=== PATIENT | female | born 1945 | race Caucasian/White ===

== ENCOUNTER → 2024-05-16 13:14 | Outpatient (REF) | payer MEDICARE, SELFPAY | LOC: WDC 13:14 | PROVIDERS: ATTENDING PHYSICIAN Family Medicine | DX: Z12.31 Encounter for screening mammogram for malignant neoplasm of breast (principal) | CPT/HCPCS: 77063; 77067 ==

== ENCOUNTER → 2024-06-29 07:28 | Outpatient (REF) | payer MEDICARE, SELFPAY ==
[2024-06-29] MEDS: LEXISCAN 0.4 MG IV (09:23)
[2024-06-29] MEDS: AMINOPHYLLINE 75 MG IV (09:49)
== END ==
LOC: RCS 07:28
PROVIDERS: ATTENDING PHYSICIAN Internal Medicine Cardiovascular Disease; FAMILY PHYSICIAN Family Medicine
DX: I51.81 Takotsubo syndrome (principal); I48.91 Unspecified atrial fibrillation; R06.02 Shortness of breath
CPT/HCPCS: 78452; 93017; A9500; J2785

== ENCOUNTER 2024-07-04 14:07 | Emergency (ER) | payer MEDICARE, SELFPAY ==
[2024-07-04 14:12] VITALS: BP 136/78
--- NOTE | 2024-07-04 15:58 | ED.PDOC.TRB ---
ED Provider Triage
-
Patient seen by provider in Triage?: Seen in Triage
A medical screening examination has been initiated by a qualified medical provider. Based on the assessment performed at this time, it has been determined that an emergent medical condition may exist and the patient has been informed that further
medical evaluation and possible additional diagnostic testing may be needed.
This is a medical evaluation conducted in person to initiate diagnostic evaluation and provide initial therapeutics. Please see further documentation by the treating clinician.
GENERAL: Alert , in no apparent distress
EYE: No visual abnormalities
NECK: No visual changes
ENT: No visual abnormalities
CARDIAC:
LUNGS: Breathing normally
ABDOMEN:
NEUROLOGICAL: Alert and oriented, no visual focal neuro deficits
SKIN: Warm and dry, skin intact.
MUSCULOSKELETAL: No edema, well perfused. Moving normally
PSYCH: Normal and appropriate interaction.
HPI/RA Plan: Patient presented to the emergency department after feeling lightheaded falling to the ground to close that she may have hit her forehead she had a CT scan initially which did not show any emergent findings. Denies any additional
injuries never fully blacked out but has felt very lightheaded and has felt very fatigued since starting metoprolol a few weeks ago. Does have history of A-fib and scheduled for an echo and potential cardioversion in the future. Otherwise here she
is in no obvious distress during my assessment plan to get labs and EKG for further assessment due to ongoing lightheadedness and weakness.
[2024-07-04 16:44] LABS: % Basophils 0.8 % (0-2); % Eosinophils 0.8 % (0-6); % Immature Granulocytes 0.9 % (0-0.5); % Monocytes 8.3 % (1.7-9.3); % Neutrophils 79.2 % (42.2-75.2); Absolute Basophils 0.1 10^3/uL (0-0.2); Absolute Eosinophils 0.1 10^3/uL (0-0.7); Absolute Immature Granulocytes 0.1 10^3/uL (0-0.05); Absolute Lymphocytes 1.1 10^3/uL (1.2-3.4); Absolute Monocytes 0.9 10^3/uL (0.1-0.6); Absolute Neutrophils 8.4 10^3/uL (1.4-6.5); Hematocrit 31.3 % (37.0-47.0); Hemoglobin 10.4 g/dL (12.0-16.0); Mean Corp Hgb Conc. 33.2 g/dL (33.0-37.0); Mean Corpuscular Hgb 29.2 pg (27.0-31.0); Mean Corpuscular Volume 87.9 fL (81.0-99.0); Mean Platelet Volume 10.6 fL (7.4-10.4); Nucleated Red Blood Cells % 0 %; Platelet Count 280 10^3/uL (130-400); Red Blood Cell Count 3.56 10^6/uL (4.20-5.40); Red Cell Dist. Width 15.8 % (11.5-14.5); White Blood Cell Count 10.7 10^3/uL (4.8-10.8)
[2024-07-04 17:04] LABS: ALT (SGPT) 37 U/L (0-35); AST (SGOT) 44 U/L (14-36); Albumin 3.8 g/dl (3.5-5.0); Alkaline Phosphatase 110 U/L (38-126); Blood Urea Nitrogen 18 mg/dl (7-17); Calcium 9.4 mg/dl (8.4-10.2); Carbon Dioxide 25 mmol/L (22-30); Chloride 103 mmol/L (98-107); Glucose 109 mg/dl (70-99); Potassium 4.3 mmol/L (3.5-5.1); Sodium 136 mmol/L (135-145); Total Bilirubin 0.8 mg/dl (0.2-1.3); Total Protein 6.6 g/dl (6.3-8.2); eGFR 51.43
[2024-07-04 17:10] LABS: Urine Albumin Trace (Neg - Trace); Urine Bilirubin 1+ (Negative); Urine Character Clear (Clear); Urine Color Amber; Urine Glucose Negative (Negative); Urine Ketone Trace (Negative); Urine Leukocyte Trace (Negative); Urine Nitrite Negative (Negative); Urine Occult Blood Negative (Negative); Urine Specific Gravity 1.025 (<1.030); Urine Urobilinogen 1+ (Neg - 1+)
[2024-07-04 17:41] VITALS: BP 108/47
[2024-07-04 18:38] LABS: Urine Hyaline Cast 0-2 /LPF (0-2); Urine Mucus Moderate; Urine Red Blood Cell 0-2 /HPF (0-2)
--- NOTE | 2024-07-04 18:38 | ED.GENMED ---
History of Present Illness
General
Chief Complaint: Fall
Source: patient
Exam Limitations: none
Time Seen by Provider: 07/04/24 18:36
History of Present Illness
History of Present Illness:
This is a 78 year old female that comes in with c/o fall in her kitchen. States that she was just walking in her kitchen today and she felt lightheaded and she could just feel herself falling. States that she recently had a tragedy in her family and
was has not been feeling good. States that she had to wear Holter Monitor and they found that she was in atrial fib. Patient states that she was started on Metoprolol and they increased her Eliquis to 5mg BID. States that she is also taking
Lisinopril in the morning and she takes the Metoprolol at night. States that she did not have any LOC today but did bump her head. States that the room was spinning. Denies any fever, chills, chest pain, SOB, ab pain, nausea, vomiting, diarrhea,
headache, urinary burning.
Past History
Past History
ED Past Medical History: Arrthythmia (Atrial fib, ) and Other (PNA, Constipation)
ED Past Surgical History: Gynecological (D&C), Orthopedic (Right knee surgery, ) and Tonsilectomy
Social History
Tobacco: Non-smoker
Alcohol: None
Personal:
Living: with family
Review of Systems
Review of Systems
All Other Systems: ROS reviewed and negative except as documented in HPI and ROS
Constitutional: Reports no symptoms; Denies fever or chills
EENT: Reports no symptoms
Respiratory: Reports no symptoms; Denies cough or trouble breathing
Cardiac: Reports no symptoms; Denies chest pain
ABD/GI: Reports no symptoms; Denies abdominal pain, nausea, vomiting or diarrhea
: Reports no symptoms; Denies dysuria, frequency or urgency
Musculoskeletal: Reports no symptoms
Skin: Reports no symptoms
Neurological: Reports dizzy (Room was spinning); Denies headache
Psychiatric: Reports no symptoms
Phy Exam
General Physical Exam
General Presentation: no apparent distress
General age: appears stated age
General Skin: warm and dry
General Habitus: elderly
General Mental: alert
General Hydration: appears well hydrated
ENT Exam
ENT Exam: TM's normal, pharynx normal and neck supple
Eye Exam
Eye Exam: EOMI
Cardiovascular Exam
Cardiovascular Exam: regular rate/rhythm and normal peripheral pulses
Pulmonary Exam
Pulmonary Exam: lungs clear, no respiratory distress, no rales, chest non tender, no crackles, no rhonchi, no wheezing and no cough
Gastrointestinal Exam
Gastrointestinal Exam: normal bowel sounds, non tender, soft, no organomegaly, no pulsatile mass and non distended
Musculoskeletal Exam
Musculoskeletal Exam: full ROM and edema (Very slight ankle edema )
Skin Exam
Skin Exam: normal color, warm/dry, no rash and no petechia
Psychiatric Exam
Psychiatric Exam: normal mood/affect
Course
Orders/Labs/Results
Orders:
Orders
07/04/24 14:14
CT Head W/o Iv Contrast Urgent
Comment: pt is on bld thinner for afib
Reason For Exam: dizzy and fell hit head
07/04/24 16:02
Electrocardiogram (*1) Stat
Reason for Study: Abdominal Pain
EKG- Treatment ONCE
07/04/24 16:27
Complete Blood Count/With Diff Urgent
Comprehensive Metabolic Panel Urgent
Urinalysis Reflex To Culture Urgent
Date Specimen was Collected: 07/04/24
Time Specimen was Collected: 16:19
Urine Microscopic Reflex Cult Urgent
07/04/24 19:04
Orthostatic VS- Treatment ONCE
0.9% Sodium Chloride 500 ml [Nss] 500 ml IV BOLUS
Abnormal Lab Results
07/04/24
16:27
RBC 3.56 L 10^6/uL
(4.20-5.40)
Hgb 10.4 L g/dL
(12.0-16.0)
Hct 31.3 L %
(37.0-47.0)
RDW 15.8 H %
(11.5-14.5)
MPV 10.6 H fL
(7.4-10.4)
Abs Immat Gran (auto) 0.1 H 10^3/uL
(0-0.05)
Absolute Neuts (auto) 8.4 H 10^3/uL
(1.4-6.5)
Absolute Lymphs (auto) 1.1 L 10^3/uL
(1.2-3.4)
Absolute Monos (auto) 0.9 H 10^3/uL
(0.1-0.6)
Immature Gran % 0.9 H %
(0-0.5)
Neutrophils % 79.2 H %
(42.2-75.2)
Lymphocytes % 10.0 L %
(20.5-51.1)
BUN 18 H mg/dl
(7-17)
Creatinine 1.1 H mg/dL
(0.6-1.0)
Glucose 109 H mg/dl
(70-99)
AST 44 H U/L
(14-36)
ALT 37 H U/L
(0-35)
Urine Ketones Trace A
(Negative)
Urine Bilirubin 1+ A
(Negative)
Leukocyte Esterase Rfl Trace A
(Negative)
Urine Bacteria (Reflex) Few A
(Negative)
07/04/24 16:27
07/04/24 16:27
H/H low ( prior labs to compare are from 2021), Slight Dehydration. Glucose nonfasting. AST. ALT slightly elevated. Urine negative for infection.
Vital Signs
Initial and Last Documented VS:
Initial Vital Signs
Temp Pulse Resp BP Pulse Ox
97.8 F 63 16 136/78 98
07/04/24 14:12 07/04/24 14:12 07/04/24 14:12 07/04/24 14:12 07/04/24 14:12
Last Documented Vital Signs
Temp Pulse Resp BP Pulse Ox
97.6 F 53 18 108/47 100
07/04/24 17:41 07/04/24 17:41 07/04/24 17:41 07/04/24 17:41 07/04/24 17:41
MDM/Problems Addressed
Differential Diagnosis Includes:
Orthostatic hypotension, Bradycardia
MDM/Problems Addressed:
This is a 78 year old female that comes in with c/o fall. States that she was in her kitchen and could fell herself falling. States that the room was spinning.
Will check labs, CT head. Give IV fluids, Orthostatic vitals. Explained to patient that she needs to follow up with the [facility] as she may need to decrease her medication as her BP is very low and her heart rate is low. Patient has an
appointment for an ECHO on Thursday. Explained to patient that she will need to call the [facility] office and explain to them what happened today.
Will give IV fluids and then discharge.
Chronic conditions affecting care: Arrhythmia (Atrial fib)
Acute Exacerbation and/or Progression of Chronic Illness:
NA
*Radiology
Radiology exam reviewed: radiology read reviewed (CT head-No acute intracranial abnormality noted. )
*Pulse Oximetry
Patient hypoxic: no
*EKG
Interpreted by ED Provider?: Yes
Heart Rate: 55
Rate: bradycardiac
Rhythm: sinus
Assumption: normal axis
Interval: normal interval
QRS Pattern: normal QRS
Ischemia: T-wave inversion (III, aVR, V1, V2, Checked by Dr. Cisneros)
*Critical Care Note
Total Time (30-74mins, 75-104mins- exclusive of procedures): Not Applicable
ED Attending Note
-
Portions of this chart may have been created with voice recognition software.� Occasional wrong word or��sound alike� substitutions may have occurred due to the inherent limitations of voice recognition software.
Discharge Plan
Departure
Patient Disposition: Home (Routine Discharge)
Date of Disposition: 07/04/24
Time of Disposition: 19:43
Patient with high blood pressure during this ER visit?: No
Condition: Good
Covid-19: Not Applicable
Discharge Problem:
Light-headedness, Accidental fall
Instructions: Preventing falls in adults, Dizziness, Nonvertigo, (DC)
Prescriptions:
No Action
multivitamin [Multi-Day] 1 EACH tablet
1 ea PO DAILY
cod liver oil 120 ML oil
120 ml PO DAILY
Calcium
Vitamin B Complex-50 Tab
Vitamin D Tab
400 units PO DAILY
atorvastatin 20 MG tablet
20 mg PO QPM Qty: 30 11RF
aspirin 81 MG tablet,delayed release (DR/EC)
81 mg PO DAILY 0RF
carvedilol 3.125 MG tablet
3.125 mg PO BID Qty: 60 11RF
lisinopril 2.5 MG tablet
2.5 mg PO DAILY Qty: 30 11RF
Eliquis DVT-PE Treat 30D Start 5 mg (74 tabs) tablets,dose pack
5 mg PO ONCE Qty: 74 0RF
Rx Instructions:
10 mg twice a day for 7 days followed by 5 mg twice a day
Referrals:
Mamta Mckeon, DO [Active] - Follow up in 2-3 days
Kristine Leonard, DO [Family Provider] -
Activity Restrictions/Additional Instructions:
As discussed, your blood work shows that you are very slightly dehydrated. Your Urine is negative for infection and your CT of the head is normal. Your Heart rate is very slow and your BP is low. Please follow up with the [facility] as she may
wish to decrease your medication. Please increase your water intake to 8-8oz glasses daily. IF YOU HAVE ANY FURTHER DIZZINESS, OR YOU HAVE ANY OTHER CONCERNS PLEASE RETURN TO THE EMERGENCY ROOM.
Interventions
Interventions:
ED-Musculoskeletal Assessment Last Done: 07/04/24 18:46
ED- Neurological Assessment Last Done: 07/04/24 18:46
ED-Skin Assessment Last Done: 07/04/24 18:46
Discharge Date and Time
Print Language: FRISIAN
[2024-07-04 18:39] LABS: Urine Bacteria Few (Negative)
[2024-07-04 18:58] VITALS: BP 125/87; BP 127/50; BP 137/54; PULSE 56; PULSE 60; PULSE 64
[2024-07-04] MEDS: NSS 500 IV (19:10)
[2024-07-04 19:40] VITALS: BP 124/58
== END 2024-07-04 19:57 | disposition home or self-care (01) ==
LOC: EMR 14:07
PROVIDERS: Physician Assistant; EMERGENCY PHYSICIAN Student in an Organized Health Care Education/Training Program; FAMILY PHYSICIAN Family Medicine
DX: R42 Dizziness and giddiness (principal); W18.39XA Other fall on same level, initial encounter; Y92.000 Kitchen of unspecified non-institutional (private) residence as the place of occurrence of the external cause; I48.91 Unspecified atrial fibrillation; Z79.01 Long term (current) use of anticoagulants; Z79.899 Other long term (current) drug therapy; Z87.01 Personal history of pneumonia (recurrent)
CPT/HCPCS: 99284; 70450; 80053; 81003; 81015; 85025; 93005

== ENCOUNTER → 2024-07-06 08:05 | Outpatient (REF) | payer MEDICARE, SELFPAY | LOC: RCS 08:05 | PROVIDERS: ATTENDING PHYSICIAN Internal Medicine Cardiovascular Disease; FAMILY PHYSICIAN Family Medicine | DX: I51.81 Takotsubo syndrome (principal); R06.02 Shortness of breath | CPT/HCPCS: 93306 ==

== ENCOUNTER → 2024-08-17 15:41 | Outpatient (REF) | payer MEDICARE, SELFPAY | LOC: HWRCS 15:41 | PROVIDERS: ATTENDING PHYSICIAN Internal Medicine Cardiovascular Disease; FAMILY PHYSICIAN Family Medicine | DX: I48.91 Unspecified atrial fibrillation (principal); I31.39 Other pericardial effusion (noninflammatory) | CPT/HCPCS: 93308 ==

== ENCOUNTER 2024-11-16 05:55 | Day surgery (SDC) | payer MEDICARE, SELFPAY ==
[2024-11-01 12:30] VITALS: BMI 22.8
[2024-11-01 13:05] LABS: % Basophils 0.9 % (0-2); % Eosinophils 1.7 % (0-6); % Immature Granulocytes 0.6 % (0-0.5); % Lymphocytes 20.2 % (20.5-51.1); % Monocytes 9.9 % (1.7-9.3); % Neutrophils 66.7 % (42.2-75.2); Absolute Basophils 0.1 10^3/uL (0-0.2); Absolute Eosinophils 0.1 10^3/uL (0-0.7); Absolute Lymphocytes 1.3 10^3/uL (1.2-3.4); Absolute Monocytes 0.6 10^3/uL (0.1-0.6); Absolute Neutrophils 4.2 10^3/uL (1.4-6.5); Hematocrit 37.2 % (37.0-47.0); Mean Corp Hgb Conc. 32.3 g/dL (33.0-37.0); Mean Corpuscular Hgb 27.5 pg (27.0-31.0); Mean Corpuscular Volume 85.3 fL (81.0-99.0); Mean Platelet Volume 9.7 fL (7.4-10.4); Nucleated Red Blood Cells % 0 %; Platelet Count 304 10^3/uL (130-400); Red Blood Cell Count 4.36 10^6/uL (4.20-5.40); Red Cell Dist. Width 13.8 % (11.5-14.5); White Blood Cell Count 6.4 10^3/uL (4.8-10.8)
[2024-11-01 13:25] LABS: ALT (SGPT) 13 U/L (0-35); AST (SGOT) 24 U/L (14-36); Albumin 4.5 g/dl (3.5-5.0); Alkaline Phosphatase 105 U/L (38-126); Blood Urea Nitrogen 22 mg/dl (7-17); Calcium 9.9 mg/dl (8.4-10.2); Carbon Dioxide 29 mmol/L (22-30); Chloride 102 mmol/L (98-107); Estimated Creatinine Clearance 33 ml/min; Glucose 99 mg/dl (70-99); Magnesium 2.2 mg/dl (1.6-2.3); PT 15.5 Sec (11.4-14.6); Potassium 4.9 mmol/L (3.5-5.1); Sodium 141 mmol/L (135-145); Total Bilirubin 0.4 mg/dl (0.2-1.3); Total Protein 7.5 g/dl (6.3-8.2); eGFR 51.11
--- NOTE | 2024-11-01 13:54 | HPS.HSE ---
Family Physician
-
Family Physician: Sruthi Pham
Chief Complaint
-
Paroxysmal atrial fibrillation.
History of Present Illness
The patient is a 79 year old female presenting today for paroxysmal atrial fibrillation. The patient reports a history of mild dyspnea with exertion, palpitations, and decreased exercise tolerance associated with this diagnosis. She is on
no current pharmacological therapy due to tachycardia-bradycardia syndrome. She has been compliant with Eliquis for oral anticoagulation. She notes that her atrial fibrillation symptoms greatly interfere with her activities of daily living and
overall impact her quality of life. She is interested in pursuing pulmonary vein isolation for further arrhythmia management. She denies any current complaints today such as chest pain, shortness of breath at rest, nausea, vomiting, diarrhea,
lightheadedness, dizziness, cough, sore throat, or fever.
Medical History
Past Medical History
Past Medical History: Reports Other
Additional Past Medical History:
1. Paroxysmal atrial fibrillation, oral anticoagulation with Eliquis.
2. Hypertension.
3. Dyslipidemia.
4. Tachycardia-bradycardia syndrome.
5. Takotsubo cardiomyopathy, recovered ejection fraction.
6. Mild tricuspid regurgitation.
7. Mild mitral regurgitation.
8. Mitral valve prolapse.
9. Trivial pericardial effusion on last echocardiogram.
10. Right common femoral, popliteal, peroneal, and posterior tibial DVT, 07/2022, on chronic Eliquis.
11. Chronic kidney disease stage 3.
12. Chronic constipation.
13. Diverticulosis.
14. Scoliosis.
15. Arthritis.
16. Urinary incontinence.
17. Monoclonal gammopathy.
18. Osteoporosis.
Past Surgical History: Reports Other
Additional Past Surgical History:
1. Cardiac catheterization.
2. Right knee meniscus repair.
3. Tonsillectomy.
4. D&C.
5. Right cataract extraction.
6. Colonoscopy x2.
Social History
Tobacco: Non-smoker
Alcohol: None
Living: Other (She lives with her daughter in a 2 story home. )
Family History
Family History: Not pertinent
Allergies / Home Medications
Allergy/Medication List:
Home medications:
1. Tylenol 650 mg p.o. every 4 hours as needed.
2. Apixaban 5 mg p.o. twice a day.
3. Calcium 1 tablet p.o. daily.
4. Cholecalciferol 25 mcg p.o. daily.
5. Lisinopril 2.5 mg p.o. daily.
Allergies: Fentanyl.
Adverse reactions: Adhesive (itching).
Review of Systems
-
A 12 point ROS was completed and negative except as noted: Yes
Physical Exam
Vital Signs
Blood pressure 122/86. Heart rate 69. Respirations 18. Pulse ox 99% on room air.
Height 5 feet, 2 inches. Weight 56.6 kg. BMI 22.8.
Physical Exam
General: Well Developed, Well Nourished and No Apparent Distress
HEENT: NormoCephalic, Moist mucous membranes and Atraumatic
Respiratory: Clear
Cardiac: Irregular Rhythm
GI: Soft, Non Tender and Non Distended
Musculoskeletal: No Edema and Normal Gait & Station
Skin: Warm and Dry
Neuro: AO x 3 and Nonfocal/grossly intact
Laboratory Results
-
11/01/24 12:39
11/01/24 12:39
Laboratory Results
PT 15.5 Sec (11.4-14.6) H 11/01/24 12:39
INR 1.20 11/01/24 12:39
Total Bilirubin 0.4 mg/dl (0.2-1.3) 11/01/24 12:39
AST 24 U/L (14-36) 11/01/24 12:39
ALT 13 U/L (0-35) 11/01/24 12:39
Alkaline Phosphatase 105 U/L (38-126) 11/01/24 12:39
Type and screen O positive.
EKG 11/01/2024: Atrial fibrillation with rapid ventricular response.
Chest CT 11/01/2024: Short segment common vestibule for the left superior and inferior pulmonary veins, fairly commonly seen and considered normal variant. No evidence for left atrial thrombus.
Echocardiogram 08/17/2024: Normal left ventricular size, wall thickness and systolic function. No regional wall motion abnormalities are seen. LV ejection fraction is 55-60% by volumetric assessment. Mitral valve opens normally. Thickened mitral
valve leaflets with mild to moderate mitral regurgitation. Tricuspid valve opens normally with mild to moderate tricuspid regurgitation. Estimated pulmonary artery pressure of 41 mmHg assuming a right atrial pressure of 3 mmHg. Trivial pericardial
effusion. Rapid atrial fibrillation throughout study. Since echo of July 06, 2024 which was reviewed, there is no significant change. Heart rate is faster in atrial fibrillation.
Nuclear stress test 06/29/2024: Lexiscan nuclear stress test reveals no significant ischemia or scar with normal perfusion. Normal LV size and function. Ejection fraction is 66%. Overall intermediate risk stress test based on Lexiscan protocol.
Impression/Plan
-
IMPRESSION/PLAN:
1. Paroxysmal atrial fibrillation: The patient is in need of pulmonary vein isolation with Dr. Kyrie Montalvo on 11/16/2024. The benefits and risks of the procedure have been explained to the patient. The patient understands these risks and wishes to
proceed. She will not be required to undergo a pre-procedural transesophageal echocardiogram as she has been compliant with her home oral anticoagulation. She is aware to continue her Eliquis uninterrupted prior to her procedure. She is aware to
take no medications the morning of her procedure.
[2024-11-16] VITALS (16 sets, daily range): BP systolic 116–169; BP diastolic 63–116; BMI 22.8
[2024-11-16] MEDS: NSS 500 IV (06:51)
[2024-11-16 09:00] LABS: ACT-LR - POC 287 Seconds (116-155)
[2024-11-16 09:17] LABS: ACT-LR - POC 284 Seconds (116-155)
[2024-11-16 09:52] LABS: ACT-LR - POC 384 Seconds (116-155)
[2024-11-16 10:17] LABS: ACT-LR - POC 136 Seconds (116-155)
[2024-11-16] MEDS: TYLENOL 650 MG PO (11:05)
--- NOTE | 2024-11-16 11:37 | ITS.CL.ABL ---
Addendum entered and electronically signed by Kyrie Montalvo DO 11/16/24 15:15:
Addendum:
'...with bupivacaine. The right [and left femoral vein were]femoral vein was accessed for catheter placement...' should read, '...with bupivacaine. The right femoral vein was accessed for catheter placement...'
Original Note:
Paper Finisher - Ablation
Ablation
Procedure Report:
Primary Decision Support Analyst: Mamta Mckeon DO
Procedure Date: 11/16/2024
Patient History:
Patient is a very pleasant 79-year-old female with a past medical history significant for persistent atrial fibrillation, tachybradycardia syndrome, nonischemic cardiomyopathy with recovered EF, trace pericardial effusion, hypertension,
dyslipidemia, history of DVT/VTE with symptomatic persistent atrial fibrillation.
See H&P for complete details.
Indication:
Symptomatic persistent atrial fibrillation
Inability to tolerate rate controlling agents due to tachybradycardia syndrome
Arrhythmia Specific History:
Prior Medical Therapies for Rate and Rhythm Control:
[ ] Beta-bhanu
[ ] Calcium channel-bhanu
[ ] Amiodarone
[ ] Dronederone
[ ] Sotalol
[ ] Flecainide
[ ] Dofetilide
X Options limited by bradycardia
[ ] Options limited by comorbid renal disease
Prior Procedural Therapies for AF/AFL:
[ ] Cardioversion
[ ] Pulmonary Vein Isolation
[ ] Posterior Wall Isolation
[ ] Additional lines (Specify)
[ ] Surgical Deutsch-MAZE or PVI (Specify)
Procedure Performed:
X AF ablation procedure (53921) -- includes LA/CS pacing, trans-septal, 3D mapping, + ICE
[ ] +IV drug (26353)
[ ] +Other Arrhythmia (29046)
X +Other AF Line/ablation (24668) -- posterior wall isolation (roof, floor, posterior wall)
Risks and expected recovery has been explained in detail. Alternative options have been explored, and in a shared-decision making fashion we have decided that this was the most appropriate procedure.
Method
NPO status confirmed. Grounding pad applied. Defibrillator pads applied. Continuous surface ECG, pulse oximetry, and blood pressure were monitored. Procedure was performed under general anesthesia, with anesthesia services.
Both groins were clipped, prepped with Chloraprep, and draped in sterile fashion. Time out was called. Local anesthesia administered with bupivacaine. The right [and left femoral vein were]femoral vein was accessed for catheter placement, using
ultrasound guidance, micro-puncture needle/wire, and modified seldinger technique. 3 sheaths were placed. The following catheters were used:
[ ] Tacticath SE (D/F Curve) ablation catheter
X Viewflex 9Fr ICE catheter
X Inquiry decapolar 6Fr diagnostic catheter
[ ] CRD Hex 6Fr
[ ] Arctic Front Advance Cryoballoon ([ ]28mm[ ]23mm)
[ ] Achieve Advance mapping catheter ([ ]15mm[ ]20mm)
X FlexCath Contour 10 Fr with PulseSelect PFA Catheter
X Advisor HD Grid Mapping Catheter, SE
[ ] Acuson AcuNav 8 Fr ICE catheter
[ ]Other: [ ]
Intracardiac ultrasound (ICE) was carefully advanced into the right atrium to guide sheath placement over a J-wire, catheter placement, guide trans-septal puncture, identify potential complications, identify anatomic structures and ensure proper
contact between ablation catheter and tissue. A trace basal LV pericardial effusion was noted at the start of procedure which remained unchanged throughout and at case completion.
Heparin was given prior to trans-septal puncture. Heparin was given to achieve and maintain a target ACT of 300-400 seconds throughout the procedure.
Trans-septal access was performed under ICE guidance. The trans-septal puncture was performed with a SafeSept wire through a Brockenbrough needle assembly through the steerable sheath. The wire was visualized as it entered the LSPV and system
advanced under ICE guidance and fluoroscopy into the LA. The Brockenbrough needle assembly, SafeSept wire and sheath dilator were removed under negative pressure. LA pressure was measured and recorded.
ICE and 3D mapping was performed to identify relevant cardiac structures. A careful 3D map was created to assess for regions of low-voltage and abnormal electrogram signals using HD grid mapping catheter and PulseSelect catheter. Additional mapping
was performed as outlined below.
Prior to ablation, glycopyrrolate was provided. PulseSelect catheter was advanced over J-wire to the ostium of each vein. Pulmonary vein isolation was performed with ostial and antral lesions in a circumferential manner. Contact was visualized via
EAM, ICE, fluoroscopy, and EGM signals. Following isolation of the left veins and right inferior vein attention was turned towards the right superior vein. Review of EGM's noted that rhythm had changed from atrial fibrillation to a concentrically
activated flutter at 240 ms. Activation appeared to be proximal to distal. First application of PFA to right superior lead to termination of atrial flutter and return to sinus rhythm. Right superior vein was isolated and subsequently posterior
wall isolation was performed by anchoring the J-wire within the pulmonary vein and placing the PulseSelect catheter in contact with the posterior wall as visualized by aforementioned methods. Following completion of ablation lesions, a post-ablation
voltage/activation map was performed in atrial pacing. Entrance and exit block were confirmed for each vein and the posterior wall.
Catheter and sheath were removed from the left atrium and post-ablation intracardiac echo evaluation was consistent with pre-ablation with no changes and no change to trace pericardial effusion and there is no left atrial thrombus or left ventricle
thrombus seen. Electrophysiology study was performed. There were no inducible arrhythmias. Hemostasis was obtained with figure of 8 stitch for each groin and with manual pressure. Protamine was used for reversal.
Estimated Blood Loss
5 mL
Complications
None
Fluoroscopy: 3.8 minutes; 7.95 mGy
Baseline Intervals:
Rhythm: AF
QRS: 72 ms
QT: 306 ms
Post-Procedure Intervals:
CA: 177 ms
QRS: 70 ms
QT: 507 ms
QTc: 506 ms
AVWB: 310 ms
AERP: 600/220 ms
Recommendations
- Bedrest with straight-leg precautions as ordered
- Anticipate same day discharge if patient meeting clinical metrics
- Resume home medications as indicated
- Ok to resume anticoagulation tonight if patient and groin sites stable
- PPI daily for 30 days
- Plan for follow-up in office as scheduled
Kyrie Montalvo DO
Clinical [employer] Security Systems Integrator
cc: Mamta Mckeon DO; Dr. Sruthi Modi
[2024-11-16 12:12] LABS: ACT-LR - POC > 397 Seconds (116-155)
--- NOTE | 2024-11-16 15:30 | W.PN.UPDATE ---
Update Note
Progress Note Update
Pt seen post PFA. Right groin site without ht/bleeding. OOB ambulating, urinating without difficulty. Post EKG SB 50s, no acute changes. Resume eliquis tonight. Followup at [facility] as scheduled. Home today if groin site/tele remain stable.
== END 2024-11-16 15:33 | disposition home or self-care (01) ==
LOC: CATH 05:55
PROVIDERS: ATTENDING PHYSICIAN Internal Medicine Cardiovascular Disease; FAMILY PHYSICIAN Family Medicine; OTHER PHYSICIAN Internal Medicine Cardiovascular Disease
DX: I48.19 Other persistent atrial fibrillation (principal); I12.9 Hypertensive chronic kidney disease with stage 1 through stage 4 chronic kidney disease, or unspecified chronic kidney disease; E78.5 Hyperlipidemia, unspecified; I49.5 Sick sinus syndrome; I08.1 Rheumatic disorders of both mitral and tricuspid valves; I31.39 Other pericardial effusion (noninflammatory); Z79.01 Long term (current) use of anticoagulants; Z86.718 Personal history of other venous thrombosis and embolism; N18.30 Chronic kidney disease, stage 3 unspecified; K59.09 Other constipation; K57.90 Diverticulosis of intestine, part unspecified, without perforation or abscess without bleeding; M41.9 Scoliosis, unspecified; M19.90 Unspecified osteoarthritis, unspecified site; R32 Unspecified urinary incontinence; D47.2 Monoclonal gammopathy; M81.0 Age-related osteoporosis without current pathological fracture; Z88.5 Allergy status to narcotic agent; Z90.89 Acquired absence of other organs; I42.8 Other cardiomyopathies; Z79.899 Other long term (current) drug therapy; Z98.890 Other specified postprocedural states
CPT/HCPCS: C1732; C1894; C1769; C1733; C1766; 36415; 75572; 80053; 83735; 85025; 85347; 85610; 86850; 86900; 86901; 93005; 93656; 93657; Q9967

== ENCOUNTER 2024-11-24 12:26 | Emergency (ER) | payer MEDICARE, SELFPAY ==
[2024-11-24 12:38] VITALS: BP 161/82
[2024-11-24 13:07] LABS: % Basophils 0.8 % (0-2); % Eosinophils 2.9 % (0-6); % Lymphocytes 15.6 % (20.5-51.1); % Monocytes 8.9 % (1.7-9.3); % Neutrophils 70.8 % (42.2-75.2); Absolute Basophils 0.1 10^3/uL (0-0.2); Absolute Eosinophils 0.2 10^3/uL (0-0.7); Absolute Immature Granulocytes 0.1 10^3/uL (0-0.05); Absolute Lymphocytes 1.1 10^3/uL (1.2-3.4); Absolute Monocytes 0.7 10^3/uL (0.1-0.6); Absolute Neutrophils 5.2 10^3/uL (1.4-6.5); Hematocrit 33.4 % (37.0-47.0); Hemoglobin 10.9 g/dL (12.0-16.0); Mean Corp Hgb Conc. 32.6 g/dL (33.0-37.0); Mean Corpuscular Hgb 27.7 pg (27.0-31.0); Mean Platelet Volume 9.8 fL (7.4-10.4); Nucleated Red Blood Cells % 0 %; Platelet Count 246 10^3/uL (130-400); Red Blood Cell Count 3.93 10^6/uL (4.20-5.40); Red Cell Dist. Width 14.7 % (11.5-14.5); White Blood Cell Count 7.3 10^3/uL (4.8-10.8)
[2024-11-24 13:21] LABS: ALT (SGPT) 14 U/L (0-35); AST (SGOT) 19 U/L (14-36); Albumin 4.1 g/dl (3.5-5.0); Alkaline Phosphatase 104 U/L (38-126); Blood Urea Nitrogen 21 mg/dl (7-17); Calcium 9.3 mg/dl (8.4-10.2); Carbon Dioxide 27 mmol/L (22-30); Chloride 103 mmol/L (98-107); Glucose 98 mg/dl (70-99); Potassium 4.3 mmol/L (3.5-5.1); Sodium 139 mmol/L (135-145); Total Bilirubin 0.3 mg/dl (0.2-1.3); eGFR > 60.00
[2024-11-24 13:30] LABS: NT-proBNP 1640 pg/ml
--- NOTE | 2024-11-24 14:36 | ED.GENMED ---
History of Present Illness
General
Chief Complaint: DVT/Possible Blood Clot
Source: patient
Exam Limitations: none
Time Seen by Provider: 11/24/24 14:09
Nursing documentation reviewed up to this point in time: agreed with
History of Present Illness
History of Present Illness:
Patient is a 79-year-old female who presents to the ER for evaluation of right lower leg/ankle swelling. Patient had a cardiac ablation 11/16 (by DR Montalvo ) through this right groin and noticed some swelling 2 days ago. She denies any pain. She
does have history of DVT years ago she is on Eliquis.
She denies any pain redness or swelling to right groin. She denies any shortness of breath fever chills.
Past History
Past History
ED Past Medical History: Arrthythmia (Atrial fib, ) and Other (PNA, Constipation)
ED Past Surgical History: Gynecological (D&C), Orthopedic (Right knee surgery, ) and Tonsilectomy
Social History
Tobacco: Non-smoker
Alcohol: None
Personal:
Living: with family
Review of Systems
Review of Systems
Allergies reviewed?: Yes
All Other Systems: ROS reviewed and negative except as documented in HPI and ROS
Constitutional: Reports no symptoms; Denies fever, fatigue or chills
Musculoskeletal: Reports other (Right lower leg and ankle swelling)
Skin: Reports no symptoms
Neurological: Reports no symptoms
Psychiatric: Reports no symptoms
Phy Exam
General Physical Exam
General Presentation: no apparent distress
General age: appears stated age
General Skin: warm and dry
General Habitus: normal
General Mental: alert
General Hydration: appears well hydrated
Neurological Exam
Neurological Exam: alert and oriented x3
Musculoskeletal Exam
Musculoskeletal Exam: other (rle with + swelling to lower leg (mild )increased to right ankle region )
Course
Orders/Labs/Results
Orders:
Orders
11/24/24 12:46
US Periph Venous LOWER Ext RT Urgent
Comment:
Reason For Exam: swelling
11/24/24 12:50
BNP [NT-proBNP] Urgent
CBC/With Diff [Complete Blood Count/With Diff] Urgent
CMP [Comprehensive Metabolic Panel] Urgent
Abnormal Lab Results
11/24/24
12:50
RBC 3.93 L 10^6/uL
(4.20-5.40)
Hgb 10.9 L g/dL
(12.0-16.0)
Hct 33.4 L %
(37.0-47.0)
MCHC 32.6 L g/dL
(33.0-37.0)
RDW 14.7 H %
(11.5-14.5)
Abs Immat Gran (auto) 0.1 H 10^3/uL
(0-0.05)
Absolute Lymphs (auto) 1.1 L 10^3/uL
(1.2-3.4)
Absolute Monos (auto) 0.7 H 10^3/uL
(0.1-0.6)
Immature Gran % 1.0 H %
(0-0.5)
Lymphocytes % 15.6 L %
(20.5-51.1)
BUN 21 H mg/dl
(7-17)
11/24/24 12:50
11/24/24 12:50
Vital Signs
Initial and Last Documented VS:
Initial Vital Signs
Temp Pulse Resp BP Pulse Ox
97.7 F 65 18 161/82 97
11/24/24 12:38 11/24/24 12:38 11/24/24 12:38 11/24/24 12:38 11/24/24 12:38
Last Documented Vital Signs
Temp Pulse Resp BP Pulse Ox
97.7 F 65 18 161/82 97
11/24/24 12:38 11/24/24 12:38 11/24/24 12:38 11/24/24 12:38 11/24/24 12:38
MDM/Problems Addressed
Differential Diagnosis Includes:
Not limited to dependent edema, DVT
MDM/Problems Addressed:
Patient is a 79-year-old female status post ablation who presented for swelling of right lower leg. On exam there is minimal swelling to right leg mostly around the right ankle area. She denies any shortness of breath fever chills. Her groin has
normal inspection without evidence of infection swelling. She has no acute distress she is anticoagulated. Ultrasound negative. Labs unremarkable will have patient elevate leg and follow-up with family doctor
*Radiology
Radiology exam reviewed: radiology read reviewed
*Critical Care Note
Total Time (30-74mins, 75-104mins- exclusive of procedures): Not Applicable
ED Attending Note
-
Portions of this chart may have been created with voice recognition software.� Occasional wrong word or��sound alike� substitutions may have occurred due to the inherent limitations of voice recognition software.
Discharge Plan
Departure
Patient Disposition: Home (Routine Discharge)
Date of Disposition: 11/24/24
Time of Disposition: 14:48
Patient with high blood pressure during this ER visit?: Yes
Condition: Fair
Covid-19: Not Applicable
Discharge Problem:
Leg swelling
Instructions: Swelling, BLOOD PRESSURE
Prescriptions:
No Action
lisinopril 2.5 MG tablet
2.5 mg PO DAILY Qty: 30 11RF
acetaminophen [Tylenol] 325 mg Tablet
650 mg PO Q4HPRN PRN (Reason: pain)
cholecalciferol (vitamin D3) [Vitamin D3] 25 mcg (1,000 unit) Capsule
25 mcg PO DAILY
Eliquis 5 mg Tablet
5 mg PO BID
calcium
1 tab PO DAILY
zinc acetate-sweetleaf 13.3-5 mg Lozenge
1 beny PO 4-6XD PRN (Reason: immunity)
Referrals:
Sruthi Pham MD [Family Provider] -
Activity Restrictions/Additional Instructions:
As discussed your ultrasound here was negative for blood clot.
Keep leg elevated as much as possible.
Return if any worsening of symptoms include increased swelling pain fever chills
You may need repeat ultrasound if symptoms persist
Follow-up with family doctor in the next several days for reevaluation
Interventions
Interventions:
*Risk Screen - Suicide Last Done: 11/24/24 12:43
*General Assessment Last Done: 11/24/24 12:43
*Neglect/Abuse Screening Last Done: 11/24/24 12:43
*ED COVID-19 Vaccine History Last Done: 11/24/24 12:43
Discharge Date and Time
Print Language: YAKUT
== END 2024-11-24 15:09 | disposition home or self-care (01) ==
LOC: EMR 12:26
PROVIDERS: EMERGENCY PHYSICIAN Student in an Organized Health Care Education/Training Program; FAMILY PHYSICIAN Family Medicine
DX: R22.41 Localized swelling, mass and lump, right lower limb (principal); M79.661 Pain in right lower leg; I48.91 Unspecified atrial fibrillation; Z79.01 Long term (current) use of anticoagulants; Z86.718 Personal history of other venous thrombosis and embolism
CPT/HCPCS: 99284; 80053; 83880; 85025; 93971

== ENCOUNTER 2025-06-17 13:19 | Inpatient (IN) | payer MEDICARE, SELFPAY ==
[2025-06-15 19:40] VITALS: BP 224/118
[2025-06-15 19:57] VITALS: BP 196/85
[2025-06-15 19:57] LABS: Hematocrit 37.7 % (37.0-47.0); Hemoglobin 12.7 g/dL (12.0-16.0); Mean Corp Hgb Conc. 33.7 g/dL (33.0-37.0); Mean Corpuscular Volume 88.5 fL (81.0-99.0); Nucleated Red Blood Cells % 0 %; Platelet Count 209 10^3/uL (130-400); Red Cell Dist. Width 12.5 % (11.5-14.5)
[2025-06-15 20:00] VITALS: BP 180/86
[2025-06-15 20:14] VITALS: BMI 25.2
[2025-06-15 20:18] LABS: ALT (SGPT) 14 U/L (0-35); AST (SGOT) 23 U/L (14-36); Albumin 4.9 g/dl (3.5-5.0); Alkaline Phosphatase 92 U/L (38-126); Blood Urea Nitrogen 20 mg/dl (7-17); Calcium 9.9 mg/dl (8.4-10.2); Carbon Dioxide 27 mmol/L (22-30); Chloride 105 mmol/L (98-107); Estimated Creatinine Clearance -20 ml/min; Glucose 113 mg/dl (70-99); Potassium 5.2 mmol/L (3.5-5.1); Sodium 139 mmol/L (135-145); Total Protein 7.7 g/dl (6.3-8.2); eGFR 57.31
[2025-06-15 20:21] LABS: Troponin I < 0.012 ng/ml
--- NOTE | 2025-06-15 20:36 | ED.GENMED ---
History of Present Illness
General
Chief Complaint: Dizziness
Source: patient and family
Exam Limitations: none
Time Seen by Provider: 06/15/25 20:16
Nursing documentation reviewed up to this point in time: agreed with
History of Present Illness
History of Present Illness:
79-year-old female history of hypertension presents with dizziness, nausea started this afternoon woke up feeling fine, no headache no chest pain no shortness of breath no abdominal pain daughter concerned she could be dehydrated due to the heat,
which she has had previously, does have high blood pressure apparently no fevers
Past History
Past History
ED Past Medical History: Arrthythmia (Atrial fib, ), HTN and Other (PNA, Constipation)
ED Past Surgical History: Gynecological (D&C), Orthopedic (Right knee surgery, ) and Tonsilectomy
Social History
Tobacco: Non-smoker
Alcohol: None
Drug: None
Personal:
Living: with family
Employment: Retired
Review of Systems
Review of Systems
All Other Systems: Not applicable
Constitutional: Denies fever or fatigue
EENT: Reports no symptoms
Respiratory: Reports no symptoms
Cardiac: Denies chest pain
ABD/GI: Reports nausea; Denies abdominal pain
: Reports no symptoms
Musculoskeletal: Reports no symptoms
Skin: Reports no symptoms
Neurological: Reports dizzy; Denies headache, weakness or numbness
Endocrine: Reports no symptoms
Phy Exam
Physical Exam
Physical Exam:
Physical Exam
General: no apparent distress, not acutely ill
Neck: No jaundice
Heart: s1/s2 regular rate and rhythm, no murmur. equal radial pulses.
Lungs: no acute respiratory distress. clear bilaterally
Abdomen: Nontender
Neuro: alert and oriented. no focal neurological deficits-Normal [id number]-iy-uwua, 1 beat of horizontal nystagmus
Skin: no rash
Psychiatric: well kept. interactive and cooperative
Extremities: no edema.
Course
Orders/Labs/Results
Orders:
Orders
06/15/25 19:44
Electrocardiogram (*1) Urgent
Reason for Study: Chest Pain
EKG- Treatment ONCE
06/15/25 19:51
Complete Blood Count/With Diff Urgent
Comprehensive Metabolic Panel Urgent
Troponin I Urgent
06/15/25 20:29
0.9% Sodium Chloride 1000 ml [Nss] 1,000 ml IV BOLUS
Ondansetron Injectable [Zofran] 4 mg IV NOW STA
06/15/25 20:30
CT Head W/o Iv Contrast Urgent
Comment:
Reason For Exam: dizzy vomitign
Abnormal Lab Results
06/15/25
19:51
Absolute Neuts (auto) 6.7 H 10^3/uL
(1.4-6.5)
Absolute Monos (auto) 0.7 H 10^3/uL
(0.1-0.6)
Lymphocytes % 13.9 L %
(20.5-51.1)
Potassium 5.2 H mmol/L
(3.5-5.1)
BUN 20 H mg/dl
(7-17)
Glucose 113 H mg/dl
(70-99)
06/15/25 19:51
06/15/25 19:51
Vital Signs
Initial and Last Documented VS:
Initial Vital Signs
Temp Pulse Resp BP Pulse Ox
98.2 F 70 16 224/118 98
06/15/25 19:40 06/15/25 19:40 06/15/25 19:40 06/15/25 19:40 06/15/25 19:40
Last Documented Vital Signs
Temp Pulse Resp BP Pulse Ox
98.2 F 65 15 146/68 97
06/15/25 19:40 06/16/25 00:15 06/16/25 00:15 06/16/25 00:00 06/16/25 00:15
MDM/Problems Addressed
Differential Diagnosis Includes:
Dehydration vertigo intracerebral hemorrhage electrolyte abnormality doubt CVA or WI
MDM/Problems Addressed:
Dizziness nausea
Chronic conditions affecting care: Arrhythmia
Acute Exacerbation and/or Progression of Chronic Illness: Arrhythmia
*Radiology
Radiology exam reviewed: radiology read reviewed
*Pulse Oximetry
SaO2: 98
Oxygen Mode of Delivery: Room air
Patient hypoxic: no
*EKG
Interpreted by ED Provider?: Yes
Interpretation: normal
Comparison EKG: no comparison EKG present
Heart Rate: 78
Rate: normal
Rhythm: sinus
Ischemia: non-specific ST changes
*[employer] Interpretation
Rate: normal
Interpretation: normal
Heart Rate: 78
Rhythm: sinus
*Critical Care Note
Total Time (30-74mins, 75-104mins- exclusive of procedures): Not Applicable
Update Note
Update Note:
Update labs noted CT noted report noted patient still dizzy when she stands this point as result keep her in the hospital consideration for advanced imaging will confirm her meds
ED Attending Note
-
Portions of this chart may have been created with voice recognition software.� Occasional wrong word or��sound alike� substitutions may have occurred due to the inherent limitations of voice recognition software.
Discharge Plan
Departure
Patient Disposition: Admit
Date of Disposition: 06/16/25
Time of Disposition: 00:25
Admit to: Telemetry
Presentation/result/management discussed w/ accepting MD/DO: Hospitalist
Patient with high blood pressure during this ER visit?: Yes
Condition: Fair
Discharge Problem:
Dizziness
Prescriptions:
No Action
lisinopril 2.5 MG tablet
2.5 mg PO DAILY Qty: 30 11RF
acetaminophen [Tylenol] 325 mg Tablet
650 mg PO Q4HPRN PRN (Reason: pain)
cholecalciferol (vitamin D3) [Vitamin D3] 25 mcg (1,000 unit) Capsule
25 mcg PO DAILY
Eliquis 5 mg Tablet
5 mg PO BID
calcium
1 tab PO DAILY
zinc acetate-sweetleaf 13.3-5 mg Lozenge
1 beny PO 4-6XD PRN (Reason: immunity)
Referrals:
Sruthi Pham MD [Family Provider, Family Practice]
Interventions
Interventions:
*Risk Screen - Suicide Last Done: 06/15/25 19:40
*Neglect/Abuse Screening Last Done: 06/15/25 19:40
*ED- Fall Risk Assessment Last Done: 06/15/25 19:40
ED- Neurological Assessment Last Done: 06/15/25 20:14
ED- Cardiac Assessment Last Done: 06/15/25 20:14
Discharge Date and Time
Print Language: LEBANESE
[2025-06-15] MEDS: NSS 1000 IV (20:38)
[2025-06-15] MEDS: ZOFRAN 4 MG IV (20:39)
[2025-06-15 21:00] VITALS: BP 163/74
[2025-06-15 22:00] VITALS: BP 174/73
[2025-06-15 23:00] VITALS: BP 128/60
[2025-06-16] VITALS (12 sets, daily range): BP systolic 130–199; BP diastolic 57–98; PULSE 64–72; BMI 22.4
--- NOTE | 2025-06-16 01:46 | HPS.HSE ---
Family Physician
-
Family Physician: Sruthi Pham
Chief Complaint
-
Dizziness
History of Present Illness
This is a 79-year-old female with past medical history significant for atrial fibrillation on anticoagulation, hypertension, hyperlipidemia, history of Takotsubo who presents to the emergency department with acute onset of dizziness approximately 24
hours ago.
Patient reported that she had been in usual state of health up until onset of symptoms when she noticed blurry vision and then a spinning sensation that is worse with standing or walking. She denied feeling lightheaded. She denies having any
palpitations. She denies any chest pain, shortness of breath or diaphoresis. She denies any lower extremity swelling. She denies any fevers or chills. She denies any headache cough sneezing etc.
She denies any pain in her eyes. She has no recent urinary symptoms. Patient denies any numbness tingling or weakness in her upper or lower extremity. She denies any falls. She denies any prior history of vertigo. She denies hearing loss or
tinnitus.
In the emergency department she was afebrile, blood pressure was 146/68 with a pulse of 75 and she was satting 98% on room air.
CBC unremarkable, electrolytes were unremarkable BUN and creatinine were stable and glucose was 113.
ECG shows normal sinus rhythm at a rate of 73, troponin was negative.
CT of the head: Age-indeterminate small lacunar infarct in the left basal ganglia
Medical History
Past Medical History
Past Medical History: Reports Other
Additional Past Medical History:
1. Paroxysmal atrial fibrillation, oral anticoagulation with Eliquis.
2. Hypertension.
3. Dyslipidemia.
4. Tachycardia-bradycardia syndrome.
5. Takotsubo cardiomyopathy, recovered ejection fraction.
6. Mild tricuspid regurgitation.
7. Mild mitral regurgitation.
8. Mitral valve prolapse.
9. Trivial pericardial effusion on last echocardiogram.
10. Right common femoral, popliteal, peroneal, and posterior tibial DVT, 07/2022, on chronic Eliquis.
11. Chronic kidney disease stage 3.
12. Chronic constipation.
13. Diverticulosis.
14. Scoliosis.
15. Arthritis.
16. Urinary incontinence.
17. Monoclonal gammopathy.
18. Osteoporosis.
Past Surgical History: Reports Other
Additional Past Surgical History:
1. Cardiac catheterization.
2. Right knee meniscus repair.
3. Tonsillectomy.
4. D&C.
5. Right cataract extraction.
6. Colonoscopy x2.
Social History
Tobacco: Non-smoker
Alcohol: None
Living: Other (She lives with her daughter in a 2 story home. )
Family History
Family History: Not pertinent
Allergies / Home Medications
Allergies reflects when Allergies were last updated in [employer].
Home Medications with original date entered in [employer]
Allergy/Medication List:
Home medications:
1. Tylenol 650 mg p.o. every 4 hours as needed.
2. Apixaban 5 mg p.o. twice a day.
3. Calcium 1 tablet p.o. daily.
4. Cholecalciferol 25 mcg p.o. daily.
5. Lisinopril 2.5 mg p.o. daily.
Allergies: Fentanyl.
Adverse reactions: Adhesive (itching).
Review of Systems
-
Constitutional: Reports No Symptoms
EENT: Reports No Symptoms
Respiratory: Reports No Symptoms
Cardiac: Reports No Symptoms
Abdomen/GI: Reports No Symptoms
: Reports No Symptoms
Musculoskeletal: Reports No Symptoms
Skin: Reports No Symptoms
Neurological: Reports Dizzy
Endocrine: Reports No Symptoms
Hematologic/Lymphatic: Reports No Symptoms
Psych: Reports No Symptoms
Physical Exam
Vital Signs
Vital Signs
Temp Pulse Resp BP Pulse Ox
98.2 F 61 13 142/63 98
06/15/25 19:40 06/16/25 01:30 06/16/25 01:30 06/16/25 01:00 06/16/25 01:30
Physical Exam
General: Well Developed, Well Nourished and No Apparent Distress
HEENT: NormoCephalic, Moist mucous membranes and Atraumatic
Respiratory: Clear
Cardiac: S1/S2 and Regular Rhythm
GI: Soft, Non Tender and Non Distended
Musculoskeletal: No Edema and Normal Gait & Station
Skin: Warm and Dry
Neuro: AO x 3, Nonfocal/grossly intact and Other (No vertigo on my examination. No nystagmus. Did not elicit vertigo with positional changes.)
Psych: Calm
Laboratory Results
-
06/15/25 19:51
06/15/25 19:51
Laboratory Results
Total Bilirubin 0.5 mg/dl (0.2-1.3) 06/15/25 19:51
AST 23 U/L (14-36) 06/15/25 19:51
ALT 14 U/L (0-35) 06/15/25 19:51
Alkaline Phosphatase 92 U/L (38-126) 06/15/25 19:51
Troponin I < 0.012 ng/ml 06/15/25 19:51
Data Reviewed
-
CT Scan: Report Reviewed by me
Medical Tests (Nuc Med, Echo, EKG etc): Image Personally Visualized and interpreted
Lab Data: Labs Reviewed by me
Old Records: Reviewed
Impression/Plan
-
IMPRESSION:
79-year-old past medical history of atrial fibrillation who presents to the emergency department with acute onset of vertigo and blurry vision. Later on developed nausea. Currently in no vertigo while in bed with orthostatic or did not show
rotational changes of the head. ECG is sinus. She is hemodynamically stable and afebrile. CT of the head notable for age-indeterminate small lacunar infarct in the left basal ganglia. NIHSS is currently '0. Labs are unremarkable. Suspect
likely BPPV versus central vertigo.
PLAN:
1. Vertigo -vertigo with age indeterminate left basal ganglia lacunar infarct.
- Admit to telemetry observation
- MRI in a.m.
- Continue Eliquis
- Orthostatic vital signs
- PT evaluation in a.m.
- Meclizine as needed
- neuroconsult if mri +
DVT PPx - on apixaban
Code status - Full Code
[2025-06-16] MEDS: ZESTRIL 2.5 MG PO (08:11)
[2025-06-16] MEDS: ELIQUIS 5 MG PO ×2 (08:12→20:25)
[2025-06-16] MEDS: TIMOPTIC 0.5% OPHTHALMIC SOLUTION 1 DROP LEFT EYE (08:12)
--- NOTE | 2025-06-16 13:52 | CON.CAR ---
Addendum entered and electronically signed by Palomo Orellana MD 06/16/25 17:06:
I saw and examined the patient.
The Provider Relations Representative's note was reviewed and I agree with the note.
Comment:
GEN: No distress, awake, Ox3
HEENT: supple, anicteric, mmm
LUNGS: CTA, no wheezes/rales
CV: Reg, S1/S2, 1/6 syst LSB, no gallop
ABD: soft, BS+, NT/ND
EXT: No edema
NEURO: Gross non-focal
SKIN: No rash
PLan:
79-year-old female with past medical history of paroxysmal atrial fibrillation/flutter status post PVI October 2024, tachybradycardia syndrome, hypertension, hyperlipidemia, recovered Takotsubo's, history of DVT presents with hypertensive urgency,
dizziness, blurry vision and vertigo. Blood pressure upon arrival was 224/118. Head CT revealed possible right internal capsule lesion concerning for possible small lacunar infarct. We were asked to evaluate her for marked sinus bradycardia in
the 40s. Patient denies any syncope. She states she has had history of low pulse in the past.
Marked sinus bradycardia. Currently her heart rate is in the 55 to 65 bpm range on sinus. She takes no AV leona blockers except timolol eyedrops. I would suspect that these are not contributing much to her bradycardia. She remains on Eliquis with
history of DVT and also history of atrial fibrillation.
Continue to follow on telemetry. MRA of the neck with no significant carotid disease and MRI of the brain with no acute CVA.
Her blood pressure is significantly improving. She has recent started back on her lisinopril. Will continue to titrate over next 24 to 48 hours. Systolic blood pressure range are now currently in the 130-160 range.
No clear indication for permanent pacing at this time. Check TSH. Will continue to follow on telemetry
Check lipids. Goal LDL should be below 70.
Original Note:
Consultation
Consultation Request
Date/Time Consultation Requested: 06/16/2025
Date/Time Consultation Performed: 06/16/2025
Requesting Provider: Dr. Ravin Barkley
Performing Provider: Laure Ballard PA-C for Dr. Orellana
Reason for Consultation: Dizzy, bradycardia
Medical History
-
History of Present Illness:
Patient is a 79-year-old female with past medical history significant for paroxysmal atrial fibrillation/flutter status post pulsed field PVI ablation October 2024, chronic anticoagulation on Eliquis, tachybradycardia syndrome, hypertension,
hyperlipidemia, recovered Takotsubo cardiomyopathy, unprovoked DVT of right lower extremity in 2021, CKD who presents to emergency department 06/15/2025 with acute onset of dizziness, balance instability, blurry vision and sensation of room spinning
around her which is worse with ambulation. Patient was noted to be significantly hypertensive on arrival with blood pressure of 224/118. Head CT demonstrated small focus of hypoattenuation within posterior limb of right internal capsule not seen
on previous head CT. Concern for small lacunar infarct. Troponin undetectable on admission the patient denies chest pain. EKG on admission showed sinus rhythm at 61 bpm. However patient was noted to have profound bradycardia with heart rates in
the 40s later on in admission prompting cardiology consult. Patient not on any AV leona blocking agents however does take timolol eyedrops.
Patient reports symptoms she came in with were very different than symptoms when she had atrial fibrillation in the past.
PMH:
Paroxysmal atrial fibrillation/atrial flutter
Status post pulsed field PVI 11/16/2024
Chronic anticoagulation on Eliquis
Tachybradycardia syndrome
Hypertension
Takotsubo cardiomyopathy, recovered ejection fraction
Mitral valve prolapse
Hyperlipidemia
Right common femoral, popliteal, peroneal, and posterior tibial DVT, 07/2022, on chronic Eliquis, Mds Manager Dr. Bautista
CKD stage III
Monoclonal gammopathy
Past Medical History
Past Medical History: Other (See HPI)
Past Surgical History: Orthopedic (Right meniscal repair), Tonsilectomy and Other (Right cataract extraction)
Social History
Tobacco: Non-Smoker
Alcohol: None
Drug: None
Living: With Family (Lives with daughter)
Family History
Family History: Hypertension
Allergies / Home Medications
Allergy/AdvReac Type Severity Reaction Status Date / Time
cyclosporine (From Restasis) Allergy Unknown Verified 06/15/25 19:44
fentanyl Allergy Nausea Verified 06/15/25 19:44
adhesive AdvReac Itching Verified 06/15/25 19:44
contrast dye Allergy Severe Rash Uncoded 06/15/25 19:44
�Medication �Instructions �Recorded �Confirmed �Type
lisinopril 2.5 mg tablet 2.5 mg PO DAILY #30 tabs 07/15/17 06/16/25 Rx
acetaminophen 325 mg tablet 650 mg PO Q4HPRN PRN pain 10/31/24 11/01/24 History
(Tylenol)
cholecalciferol (vitamin D3) 25 25 mcg PO DAILY 10/31/24 06/16/25 History
mcg (1,000 unit) capsule (Vitamin
D3)
apixaban 5 mg tablet (Eliquis) 5 mg PO BID 11/01/24 06/16/25 History
calcium 1 tab PO DAILY 11/01/24 06/16/25 History
zinc acetate-sweetleaf 13.3 mg-5 1 beny PO 4-6XD PRN immunity 11/16/24 06/16/25 History
mg lozenges
timolol maleate 0.5 % eye drops 1 drp ophthalmic (eye) BID 06/16/25 06/16/25 History
Review of Systems
-
History Source: Patient
All other systems: Negative unless noted
Physical Exam
Vital Signs
Temp Pulse Resp BP Pulse Ox
98.1 F 44 18 136/57 96
06/16/25 11:17 06/16/25 11:17 06/16/25 11:17 06/16/25 11:17 06/16/25 11:17
GEN: No distress, awake, Ox3, sitting on side of bed
HEENT: supple, anicteric, mmm
LUNGS: CTA, no wheezes/rales
CV: Reg, S1/S2, 1/6 syst murmur left sternal border to apex
ABD: soft, BS+, NT/ND
EXT: No edema, clubbing or cyanosis
NEURO: Gross non-focal
SKIN: No rash, warm, dry, pink
Lab Results
06/15/25 19:51
06/15/25 19:51
Troponin I < 0.012 ng/ml 06/15/25 19:51
Impression / Plan
-
Primary Care Provider: [facility], Sruthi Pham
Primary donor relations associate: Dr. Mckeon
Impression:
Presented 06/15/2025 with acute dizziness, blurry vision and balance instability x 24 hours
TIA
Paroxysmal atrial fibrillation/atrial flutter
Status post pulsed field PVI 11/16/2024
Chronic anticoagulation on Eliquis
Tachybradycardia syndrome
Hypertension
Takotsubo cardiomyopathy, recovered ejection fraction
Mitral valve prolapse
Hyperlipidemia
Right common femoral, popliteal, peroneal, and posterior tibial DVT, 07/2022, on chronic Eliquis, Mds Manager Dr. Bautista
CKD stage III
Monoclonal gammopathy
Echo 08/17/2024: EF 5 55 to 60%. Mild to moderate MR. Mild to moderate TR. PAP 41 mmHg. Trivial pericardial effusion. Patient was in rapid A-fib throughout study.
Lexiscan nuclear stress test June 2024: No evidence of reversible ischemia or scar, EF 66%
6-day outpatient monitor completed 07/14/2024: Sinus bradycardia with heart rate range 39 to 88 bpm, average 56 bpm. Paroxysmal atrial fibrillation 38.5% of the time, longest 1.2 days. Atrial flutter 0.1%. PACs 1.2%, PVC 0.1%
Plan:
-Presented 06/15/2025 with acute dizziness, blurry vision and balance instability x [address] shows small focus of hypoattenuation in right internal capsule concerning for acute lacunar infarct.
- MRI performed which showed no evidence of acute stroke. Possible TIA versus hypertensive urgency event
-MRA of head and neck shows normal [place] and no significant carotid disease
- Cardiology is being asked to see patient due to development of bradycardia with heart rates in 40s. Patient has known history of tachybradycardia syndrome with prior outpatient monitor in 2023 showing average heart rate 56 bpm but heart rate
dipping into the 30s.
- Patient does take timolol eyedrops. Not on any rate lowering agents. Avoid AV leona blocking agents
- Check TSH with reflex free T4
- Continue observation of heart rate and rhythm. No indication for pacemaker at this time.
- Repeat orthostatic vitals in a.m. since blood pressure seems to be better controlled. Patient did have dropped from 199/96 while supine to 152/98 with standing on synthetic cloth binding cutter of 06/16/2025
- Patient was noted to be significantly hypertensive on arrival with blood pressure of 224/118. Blood pressure seems to have improved. She was maintained on low-dose lisinopril 2.5 mg daily as outpatient. Continue to monitor and trend
- Check echocardiogram, however if not able to be performed as inpatient can be checked as outpatient
- Patient does have history of unprovoked DVT in 2021 and has been maintained on long-term anticoagulation given history of DVT as well as paroxysmal atrial fibrillation. Her orthodontic technician is Dr. Miner
- PT/OT
- Will arrange for outpatient cardiology follow-up
HPI 06/16/2025:
Patient is a 79-year-old female with past medical history significant for paroxysmal atrial fibrillation/flutter status post pulsed field PVI ablation October 2024, chronic anticoagulation on Eliquis, tachybradycardia syndrome, hypertension,
hyperlipidemia, recovered Takotsubo cardiomyopathy, unprovoked DVT of right lower extremity in 2021, CKD who presents to emergency department 06/15/2025 with acute onset of dizziness, balance instability, blurry vision and sensation of room spinning
around her which is worse with ambulation. Patient was noted to be significantly hypertensive on arrival with blood pressure of 224/118. Head CT demonstrated small focus of hypoattenuation within posterior limb of right internal capsule not seen on
previous head CT. Concern for small lacunar infarct. Troponin undetectable on admission the patient denies chest pain. EKG on admission showed sinus rhythm at 61 bpm. However patient was noted to have profound bradycardia with heart rates in the
40s later on in admission prompting cardiology consult. Patient not on any AV leona blocking agents however does take timolol eyedrops.
--- NOTE | 2025-06-16 15:31 | W.PN.HOSP.TC ---
Today's Communication/Plan
-
Assessment / Plan
Assessment / Plan
General: No Apparent Distress, Comfortable and Conversant
HEENT: NormoCephalic, Moist mucous membranes, Atraumatic
Respiratory: Clear and Non Labored Respirations
Cardiac: S1/S2 and Regular Rhythm; No Rub or Gallop
GI: Soft, Non Tender, Non Distended and Normal Bowel Sounds
Musculoskeletal: No Edema, no deformity
Skin: Warm and dry
: NO Bird
Neuro: Awake, Alert, Nonfocal/grossly intact
Psych: Calm and Intact Judgment/Insight
Ms. Mccormack is a 79-year-old female with a medical history of paroxysmal A-fib (status post ablation October 2024, anticoagulation with Eliquis), tachybradycardia syndrome, Takotsubo's cardiomyopathy (recovered), hypertension, CKD stage III, and
unprovoked right lower extremity DVT (2021) who presented with dizziness and blurry vision. She denies sensation of room spinning but reports difficulty balancing with ambulation. Her symptoms are exacerbated by rapid head movement but not by
horizontal or vertical gaze alone. She was significantly hypertensive in the ED with initial BP of 224/118. Her heart rate has fluctuated between 40 and 80. Her labs were generally unremarkable other than a mild hyperkalemia with a potassium of
5.2. CT brain showed small focus of hypoattenuation in the posterior limb of the right internal capsule. Further evaluation with MRI is pending for stroke workup.
Hypertensive emergency:
- Presented with blood pressure of 224/118 and dizziness with blurry vision
- CT brain concerning for possible stroke, MRI/MRA head and neck pending
- Blood pressure and symptoms currently well-controlled
- Check echocardiogram
- Appreciate cardiology input regarding bradycardia especially considering relatively recent ablation
- On Eliquis, not a candidate for TNK
- If MRI shows acute infarct will ask for neurology evaluation
- power distributor
CKD stage III:
- Renal function stable
- Continue to monitor
Hyperkalemia:
- Mild, monitor
DVT prophylaxis: Eliquis
CODE STATUS: Full code
Total time spent on today's encounter was 45 minutes
Anticipated Discharge: 24 - 48 hours
Subjective/Interval History
-
Date of Service: June 16, 2025
Patient was seen and examined at bedside this morning. She continues to have intermittent dizziness and blurry vision. Heart rate down to the low 40s this morning. Unclear if this is related to her dizziness. MRI brain pending for further
evaluation of possible stroke considering presenting hypertension and abnormal CT brain.
Objective Data
-
Vital Signs:
Vital Signs
Temp Pulse Resp BP Pulse Ox
98.1 F 44 18 136/57 96
06/16/25 11:17 06/16/25 11:17 06/16/25 11:17 06/16/25 11:17 06/16/25 11:17
Review of Systems
-
History Source: Patient
All other systems: Reviewed and negative
EENT: Reports Blurry Vision
Neuro: Reports Dizzy
Physical Exam
-
General: No Apparent Distress
--- NOTE | 2025-06-16 16:28 | CM ---
Alert awake oriented patient who lives with her dgt Yoko in a 2 story home with 1steps to enter and 12 steps to bed/bathroom. She is independent in activates of daily living.She does drive .No adaptive devices. BORDEN letter given explained and
signed on chart.
No VN in past . No SNF hx
Pharmacy [facility]
PCP Dr Modi
PLAN Home with no needs
[2025-06-17] VITALS (7 sets, daily range): BP systolic 109–160; BP diastolic 61–74; PULSE 63–89
[2025-06-17 09:28] LABS: HDL Cholesterol 51 mg/dl; LDL Cholesterol, Calculated 122 mg/dl; Very Low Density Lipoprotein 11 mg/dl (0-30)
[2025-06-17] MEDS: ELIQUIS 5 MG PO ×2 (10:11→20:22)
[2025-06-17] MEDS: FLUSH (NSS) 1 FLUSH IV (10:12)
[2025-06-17] MEDS: TIMOPTIC 0.5% OPHTHALMIC SOLUTION 1 DROP LEFT EYE (10:12)
[2025-06-17] MEDS: ZESTRIL 2.5 MG PO (10:12)
--- NOTE | 2025-06-17 12:18 | PTCARENOTE ---
Pt's orthostatic BPs were as follows this am: 149/67, HR 63 (supine), 124/74, HR 70 (sitting), 109/66, HR 89 (standing). Pt asymptomatic. Made Dr. Stanley aware of results. See new order for IVF.
--- NOTE | 2025-06-17 12:27 | W.PN.HOSP.TC ---
Today's Communication/Plan
-
Assessment / Plan
Assessment / Plan
General: No Apparent Distress, Comfortable and Conversant
HEENT: NormoCephalic, Moist mucous membranes, Atraumatic
Respiratory: Clear and Non Labored Respirations
Cardiac: S1/S2 and Regular Rhythm; No Rub or Gallop
GI: Soft, Non Tender, Non Distended and Normal Bowel Sounds
Musculoskeletal: No Edema, no deformity
Skin: Warm and dry
: NO Bird
Neuro: Awake, Alert, Nonfocal/grossly intact
Psych: Calm and Intact Judgment/Insight
Ms. Mccormack is a 79-year-old female with a medical history of paroxysmal A-fib (status post ablation October 2024, anticoagulation with Eliquis), tachybradycardia syndrome, Takotsubo's cardiomyopathy (recovered), hypertension, CKD stage III, and
unprovoked right lower extremity DVT (2021) who presented with dizziness and blurry vision. She denies sensation of room spinning but reports difficulty balancing with ambulation. Her symptoms are exacerbated by rapid head movement but not by
horizontal or vertical gaze alone. She was significantly hypertensive in the ED with initial BP of 224/118. Her heart rate has fluctuated between 40 and 80. Her labs were generally unremarkable other than a mild hyperkalemia with a potassium of
5.2. CT brain showed small focus of hypoattenuation in the posterior limb of the right internal capsule. Further evaluation with MRI is pending for stroke workup.
Hypertensive emergency:
- Presented with blood pressure of 224/118 and dizziness with blurry vision
- Stroke ruled out after unremarkable MRI/MRA head neck
- Blood pressure currently well-controlled with home low-dose lisinopril 2.5 mg daily
- pvc monitor
Orthostatic hypotension:
- Patient has now had multiple episodes of symptomatic orthostasis during this admission
- Unclear if this is related to her history of tachybradycardia syndrome, appreciate cardiology guidance
- Continue telemetry and IV fluids
- Will check an a.m. cortisol, sodium, and potassium
- Considering erratic blood pressure, will check plasma metanephrines and catecholamines with a.m. labs
Paroxysmal A-fib:
- Not on rate controlling medication suspect due to history of tachybradycardia syndrome
- Has been significantly bradycardic down to around 40 during this hospitalization
- Cardiology following, guidance appreciated
- Anticoagulation with Eliquis
CKD stage III:
- Renal function stable
- Continue to monitor
Hyperkalemia:
- Mild, monitor
DVT prophylaxis: Eliquis
CODE STATUS: Full code
Total time spent on today's encounter was 40 minutes
Anticipated Discharge: 24 - 48 hours
Subjective/Interval History
-
Date of Service: June 17, 2025
Patient was seen and examined at bedside this morning. She continues to be orthostatic. Stroke was ruled out on MRI yesterday. Continuing fluids and workup for adrenal insufficiency.
Objective Data
-
Labs:
Laboratory Results
06/17/25 06/17/25
08:16 12:10
Sodium Pending Cancelled
Potassium Pending Cancelled
Chloride Pending Cancelled
Carbon Dioxide Pending Cancelled
BUN Pending Cancelled
Creatinine Pending Cancelled
Glucose Pending Cancelled
Calcium Pending Cancelled
Vital Signs:
Vital Signs
Temp Pulse Resp BP Pulse Ox
97.9 F 72 15 143/68 96
06/17/25 07:13 06/17/25 10:12 06/17/25 07:13 06/17/25 10:12 06/17/25 07:13
I&O
06/16/25 06/17/25 06/18/25
06:59 06:59 06:59
Intake Total 480 / 480
Balance 480 / 480
Review of Systems
-
History Source: Patient
All other systems: Reviewed and negative
Neuro: Reports Dizzy
Physical Exam
-
General: No Apparent Distress
[2025-06-17] MEDS: NSS 1000 IV (12:34)
[2025-06-17 12:42] LABS: Chloride 106 mmol/L (98-107)
[2025-06-17 12:44] LABS: Blood Urea Nitrogen 19 mg/dl (7-17); Calcium 9.6 mg/dl (8.4-10.2); Carbon Dioxide 26 mmol/L (22-30); Estimated Creatinine Clearance 36 ml/min; Glucose 99 mg/dl (70-99); Potassium 4.5 mmol/L (3.5-5.1); Sodium 139 mmol/L (135-145); eGFR 57.31
--- NOTE | 2025-06-17 13:20 | W.PN.CARDCBS ---
Today's Communication / Plan
-
Not adding much from a cardiology standpoint and I have no objection for her to be discharged home from a cardiac standpoint.
Will sign off.
Impression / Plan
-
Primary Care Provider: [facility], Sruthi Pham
Primary executive administrator: Dr. Mckeon
Impression:
Presented 06/15/2025 with acute dizziness, blurry vision and balance instability x 24 hours
TIA
Paroxysmal atrial fibrillation/atrial flutter
Status post pulsed field PVI 11/16/2024
Chronic anticoagulation on Eliquis
Tachybradycardia syndrome
Hypertension
Takotsubo cardiomyopathy, recovered ejection fraction
Mitral valve prolapse
Hyperlipidemia
Right common femoral, popliteal, peroneal, and posterior tibial DVT, 07/2022, on chronic Eliquis, Activity Assistant Dr. Bautista
CKD stage III
Monoclonal gammopathy
Echo 08/17/2024: EF 5 55 to 60%. Mild to moderate MR. Mild to moderate TR. PAP 41 mmHg. Trivial pericardial effusion. Patient was in rapid A-fib throughout study.
Lexiscan nuclear stress test June 2024: No evidence of reversible ischemia or scar, EF 66%
6-day outpatient monitor completed 07/14/2024: Sinus bradycardia with heart rate range 39 to 88 bpm, average 56 bpm. Paroxysmal atrial fibrillation 38.5% of the time, longest 1.2 days. Atrial flutter 0.1%. PACs 1.2%, PVC 0.1%
Plan:
79-year-old female with past medical history of paroxysmal atrial fibrillation/flutter status post PVI October 2024, tachybradycardia syndrome, hypertension, hyperlipidemia, recovered Takotsubo's, history of DVT presents with hypertensive urgency,
dizziness, blurry vision and vertigo. Blood pressure upon arrival was 224/118. Head CT revealed possible right internal capsule lesion concerning for possible small lacunar infarct. We were asked to evaluate her for marked sinus bradycardia in
the 40s. Patient denies any syncope. She states she has had history of low pulse in the past.
Continue to follow on telemetry.
MRA of the neck with no significant carotid disease and MRI of the brain with no acute CVA.
Sinus bradycardia.
Currently her heart rate is in the 55 to 65 bpm range on sinus. She takes no AV leona blockers except timolol eyedrops. I would suspect that these are not contributing much to her bradycardia.
No clear indication for permanent pacing at this time.
Telemetry demonstrates sinus rhythm and sinus bradycardia occasionally with PVCs also there is a brief episode of PAT, nonsustained. There are no sustained arrhythmias.
Will continue to follow on telemetry
There is a history of paroxysmal atrial fibrillation and atrial flutter. She did undergo PVI 11/16/2020 for.
She remains in SR
Maintain Eliquis 5 mg twice daily for atrial fibrillation related thromboembolic risk reduction.
Patient does have history of unprovoked DVT in 2021 and has been maintained on long-term anticoagulation given history of DVT as well as paroxysmal atrial fibrillation. Her [employer] w[facility] consultant is Dr. Miner
Her blood pressure is significantly improving and stabilized over the past 24 hours. She has recent started back on her lisinopril.
Will continue to titrate over next 24 to 48 hours. Systolic blood pressure range are now currently in the 130-160 range.
Continue current dose of lisinopril at 2.5 mg daily.
Evaluation for secondary causes of hypertension underway by primary service (a.m. cortisol, metanephrine, and catecholamine levels are pending)
Fasting lipids finds total cholesterol 184, LDL 122, HDL 51 and triglycerides 56
Goal LDL should be below 70.
Will initiate statin. Crestor 10 mg daily
Can check echocardiogram as an outpatient.
Not adding much from a cardiology standpoint and I have no objection for her to be discharged home from a cardiac standpoint.
Will sign off.
Outpatient cardiology follow-up
HPI 06/16/2025:
Patient is a 79-year-old female with past medical history significant for paroxysmal atrial fibrillation/flutter status post pulsed field PVI ablation October 2024, chronic anticoagulation on Eliquis, tachybradycardia syndrome, hypertension,
hyperlipidemia, recovered Takotsubo cardiomyopathy, unprovoked DVT of right lower extremity in 2021, CKD who presents to emergency department 06/15/2025 with acute onset of dizziness, balance instability, blurry vision and sensation of room spinning
around her which is worse with ambulation. Patient was noted to be significantly hypertensive on arrival with blood pressure of 224/118. Head CT demonstrated small focus of hypoattenuation within posterior limb of right internal capsule not seen on
previous head CT. Concern for small lacunar infarct. Troponin undetectable on admission the patient denies chest pain. EKG on admission showed sinus rhythm at 61 bpm. However patient was noted to have profound bradycardia with heart rates in the
40s later on in admission prompting cardiology consult. Patient not on any AV leona blocking agents however does take timolol eyedrops.
Progress Note - Limo Driver
Subjective
Date of Service: June 17, 2025
Sitting on the edge of the bed, well-appearing no distress. Denies any chest pain shortness of breath palpitations or dizziness.
Objective
Labs:
06/15/25 19:51
06/17/25 12:10
Labs
Hgb 12.7 g/dL (12.0-16.0) 06/15/25 19:51
Hct 37.7 % (37.0-47.0) 06/15/25 19:51
Plt Count 209 10^3/uL (130-400) 06/15/25 19:51
Sodium Cancelled 06/17/25 12:10
Potassium Cancelled 06/17/25 12:10
BUN Cancelled 06/17/25 12:10
Creatinine Cancelled 06/17/25 12:10
Glucose Cancelled 06/17/25 12:10
Troponins
06/15/25
19:51
Troponin I < 0.012
Vital Signs and I&O:
Vital Signs
Temp Pulse Resp BP Pulse Ox
97.9 F 72 15 143/68 96
06/17/25 07:13 06/17/25 10:12 06/17/25 07:13 06/17/25 10:12 06/17/25 07:13
Vital Signs
Temp Pulse Resp BP Pulse Ox
97.9 F 72 15 143/68 96
06/17/25 07:13 06/17/25 10:12 06/17/25 07:13 06/17/25 10:12 06/17/25 07:13
Intake & Output
06/15/25 06/16/25 06/17/25 06/18/25
06:59 06:59 06:59 06:59
Intake Total 480 / 480
Balance 480 / 480
Physical Exam
Physical Exam
Sitting on the edge of the bed, well-appearing no distress. Denies any chest pain shortness of breath palpitations or dizziness.
Regular rate and rhythm normal S1 and S2, there is occasional ectopy. There is no S3 there is no S4 there is a grade 1/6 apical holosystolic murmur no rubs
Lungs are clear to auscultation bilateral without wheezes rales or rhonchi
Abdomen soft nontender nondistended with normoactive bowel
Extremities no clubbing cyanosis or edema
--- NOTE | 2025-06-17 14:52 | CM ---
Patient seen at bedside on . patient states that she has concerns about OBS/BORDEN status. CM reviewed form and answered all questions. Patient physician called to CM and indicated that he would be changing patient to INP status. CM updated
patient. Patient indicated that she was pushing herself in her care for her . Patient plan is home with no needs. CM will continue to follow for discharge planning needs.
Plan; home with no needs;
[2025-06-17] MEDS: CRESTOR 10 MG PO (18:10)
[2025-06-18 03:29] VITALS: BP 160/73
[2025-06-18 06:55] LABS: Blood Urea Nitrogen 21 mg/dl (7-17); Calcium 8.9 mg/dl (8.4-10.2); Carbon Dioxide 23 mmol/L (22-30); Chloride 110 mmol/L (98-107); Estimated Creatinine Clearance 36 ml/min; Glucose 91 mg/dl (70-99); Potassium 4.7 mmol/L (3.5-5.1); Sodium 139 mmol/L (135-145); eGFR 57.31
[2025-06-18 07:00] VITALS: BP 188/83
[2025-06-18 07:16] LABS: Cortisol, Random 7.2 ug/dl
[2025-06-18] MEDS: ZESTRIL 2.5 MG PO (08:31)
[2025-06-18] MEDS: ELIQUIS 5 MG PO (08:31)
[2025-06-18] MEDS: TIMOPTIC 0.5% OPHTHALMIC SOLUTION 1 DROP LEFT EYE (08:31)
[2025-06-18] MEDS: FLUSH (NSS) 1 FLUSH IV (08:31)
[2025-06-18 10:01] VITALS: BP 133/76; BP 153/58; BP 153/67; PULSE 74; PULSE 75; PULSE 77
[2025-06-18 11:19] VITALS: BP 154/67
--- NOTE | 2025-06-18 11:52 | CM ---
Addendum entered by Enriqueta Cardozo 06/18/25 11:56:
Patient indicated again that she does not want VN supports at this time.
Original Note:
Patient for discharge home today, per patient currently seen in [facility]. Patient completed IMM and signed form placed on chart. Patient granddaughter asking for patient to have VN. CM will ask again, patient had declined VN previously. CM will
continue for discharge planning needs.
Plan; home with no needs vs home with Vn
--- NOTE | 2025-06-18 12:34 | W.DCSUMMARY ---
Discharge Summary
Discharge Data
Date of Admission: 06/17/25
Date of Discharge: 06/18/25
Total time spent discharging patient (in min): 45
-
Pending Results: Yes
Additional Pending Results:
Plasma catecholamines and metanephrines
Hospital Course
Ms. Mccormack is a 79-year-old female with a medical history of paroxysmal A-fib (status post ablation October 2024, anticoagulation with Eliquis), tachybradycardia syndrome, Takotsubo's cardiomyopathy (recovered), hypertension, CKD stage III, and
unprovoked right lower extremity DVT (2021) who presented with dizziness and blurry vision. She denies sensation of room spinning but reports difficulty balancing with ambulation. Her symptoms are exacerbated by rapid head movement but not by
horizontal or vertical gaze alone. She was significantly hypertensive in the ED with initial BP of 224/118. Her heart rate has fluctuated between 40 and 80. Her labs were generally unremarkable other than a mild hyperkalemia with a potassium of
5.2. CT brain showed small focus of hypoattenuation in the posterior limb of the right internal capsule. She was admitted for further evaluation and management.
MRI/MRI of head neck showed no evidence of acute stroke. Her blood pressure improved and she was maintained on her home dose of lisinopril 2.5 mg daily. She did develop orthostatic hypotension. She was also intermittently bradycardic with a heart
rate at times down to around 40, which is actually not unusual for her considering her history of tachybradycardia syndrome. She was kept on telemetry and evaluated by cardiology who did not feel her bradycardia was related to her symptomatology.
Her orthostatic hypotension was initially associated with dizziness however her dizziness resolved after administration of IV fluids. Her electrolytes were within normal limits. However labs revealed an a.m. serum cortisol of 7 which is
indeterminate for adrenal insufficiency. She will need to follow-up with her primary care physician or with an sales and marketing intern for further workup including an ACTH stimulation test if needed. Her orthostatic hypotension did recur intermittently
although she no longer felt dizzy with these blood pressure changes. She was instructed on changing positions slowly and cautiously in order to avoid abrupt blood pressure changes and potential associated symptoms. She was not treated with
steroids at this time. Considering her erratic blood pressure, lab work for plasma metanephrines and catecholamines was obtained and results are pending. She should continue to monitor her blood pressure regularly and discuss any potential changes
to her blood pressure medication regimen with her modeling and simulation analyst and primary care physician. At this time she is medically stable for discharge to home. She was evaluated by PT/OT who felt she had no skilled needs at this time. She will need to
follow-up with her primary care physician to arrange for ACTH stimulation test for further evaluation of potential adrenal insufficiency. She she will also follow-up with her primary modeling and simulation analyst after hospital discharge.
HEENT: NormoCephalic, Moist mucous membranes, Atraumatic
Respiratory: Clear and Non Labored Respirations
Cardiac: S1/S2 and Regular Rhythm; No Rub or Gallop
GI: Soft, Non Tender, Non Distended and Normal Bowel Sounds
Musculoskeletal: No Edema, no deformity
Skin: Warm and dry
: NO Bird
Neuro: Awake, Alert, Nonfocal/grossly intact
Psych: Calm and Intact Judgment/Insight
Discharge Plan
-
Patient Disposition: Home (Routine Discharge)
Discharge Diagnosis/Procedures: Hypertensive emergency, orthostatic hypotension
Activity: As tolerated
Blood Work: Lab work including ACTH stimulation test to evaluate for possible adrenal insufficiency
Activity Restrictions/Additional Instructions:
Ms. Mccormack is a 79-year-old female with a medical history of paroxysmal A-fib (status post ablation October 2024, anticoagulation with Eliquis), tachybradycardia syndrome, Takotsubo's cardiomyopathy (recovered), hypertension, CKD stage III, and
unprovoked right lower extremity DVT (2021) who presented with dizziness and blurry vision. She denies sensation of room spinning but reports difficulty balancing with ambulation. Her symptoms are exacerbated by rapid head movement but not by
horizontal or vertical gaze alone. She was significantly hypertensive in the ED with initial BP of 224/118. Her heart rate has fluctuated between 40 and 80. Her labs were generally unremarkable other than a mild hyperkalemia with a potassium of
5.2. CT brain showed small focus of hypoattenuation in the posterior limb of the right internal capsule. She was admitted for further evaluation and management.
MRI/MRI of head neck showed no evidence of acute stroke. Her blood pressure improved and she was maintained on her home dose of lisinopril 2.5 mg daily. She did develop orthostatic hypotension. She was also intermittently bradycardic with a heart
rate at times down to around 40, which is actually not unusual for her considering her history of tachybradycardia syndrome. She was kept on telemetry and evaluated by cardiology who did not feel her bradycardia was related to her symptomatology.
Her orthostatic hypotension was initially associated with dizziness however her dizziness resolved after administration of IV fluids. Her electrolytes were within normal limits. However labs revealed an a.m. serum cortisol of 7 which is
indeterminate for adrenal insufficiency. She will need to follow-up with her primary care physician or with an sales and marketing intern for further workup including an ACTH stimulation test if needed. Her orthostatic hypotension did recur intermittently
although she no longer felt dizzy with these blood pressure changes. She was instructed on changing positions slowly and cautiously in order to avoid abrupt blood pressure changes and potential associated symptoms. She was not treated with
steroids at this time. Considering her erratic blood pressure, lab work for plasma metanephrines and catecholamines was obtained and results are pending. She should continue to monitor her blood pressure regularly and discuss any potential changes
to her blood pressure medication regimen with her modeling and simulation analyst and primary care physician. At this time she is medically stable for discharge to home. She was evaluated by PT/OT who felt she had no skilled needs at this time. She will need to
follow-up with her primary care physician to arrange for ACTH stimulation test for further evaluation of potential adrenal insufficiency. She she will also follow-up with her primary modeling and simulation analyst after hospital discharge.
Referrals:
Sruthi Pham MD [Family Provider, Family Practice]
Mamta Mckeon DO [Active, Cardiology] - 08/08/25 9:40 am
Referral Note: You have a cardiology follow-up appointment at the [facility]. Please call with questions
Prescriptions:
New
rosuvastatin 10 mg Tablet
10 mg PO QPM 90 Days Qty: 90 0RF
Continued
lisinopril 2.5 MG tablet
2.5 mg PO DAILY Qty: 30 11RF
acetaminophen [Tylenol] 325 mg Tablet
650 mg PO Q4HPRN PRN (Reason: pain)
cholecalciferol (vitamin D3) [Vitamin D3] 25 mcg (1,000 unit) Capsule
25 mcg PO DAILY
Eliquis 5 mg Tablet
5 mg PO BID
calcium
1 tab PO DAILY
zinc acetate-sweetleaf 13.3-5 mg Lozenge
1 beny PO 4-6XD PRN (Reason: immunity)
timolol maleate 0.5 % Drops
1 drp OPHTHALMIC (EYE) BID
Discharge Orders:
Discharge Patient (As Directed); Ordered 06/18/25
Ordered By: Ravin Barkley
Discharge Date and Time
Print Language: PUERTO RICAN
[2025-06-18 15:25] VITALS: BP 135/79
== END 2025-06-18 16:48 | disposition home or self-care (01) | DRG 304 ==
LOC: 4 EAST ACU 13:19
PROVIDERS: Emergency Medicine; ADMITTING PHYSICIAN Internal Medicine; ATTENDING PHYSICIAN Internal Medicine; CONSULT PHYSICIAN Internal Medicine Cardiovascular Disease; EMERGENCY PHYSICIAN Emergency Medicine; FAMILY PHYSICIAN Family Medicine
DX: I16.1 Hypertensive emergency (principal); I63.81 Other cerebral infarction due to occlusion or stenosis of small artery; I51.81 Takotsubo syndrome; E27.40 Unspecified adrenocortical insufficiency; G45.9 Transient cerebral ischemic attack, unspecified; I48.92 Unspecified atrial flutter; I95.1 Orthostatic hypotension; I48.0 Paroxysmal atrial fibrillation; I12.9 Hypertensive chronic kidney disease with stage 1 through stage 4 chronic kidney disease, or unspecified chronic kidney disease; N18.30 Chronic kidney disease, stage 3 unspecified; I49.5 Sick sinus syndrome; Z86.718 Personal history of other venous thrombosis and embolism; E87.5 Hyperkalemia; Z79.01 Long term (current) use of anticoagulants; I34.1 Nonrheumatic mitral (valve) prolapse; E78.5 Hyperlipidemia, unspecified; D47.2 Monoclonal gammopathy; K59.09 Other constipation; M41.9 Scoliosis, unspecified; M19.90 Unspecified osteoarthritis, unspecified site; R32 Unspecified urinary incontinence; M81.0 Age-related osteoporosis without current pathological fracture; Z98.41 Cataract extraction status, right eye; Z79.899 Other long term (current) drug therapy; Z91.041 Radiographic dye allergy status
CPT/HCPCS: 70450; 70544; 70547; 70551; 80048; 80053; 80061; 82384; 82533; 83835; 84484; 85025; 93005; 96361; 96374; 97162; 99285

== ENCOUNTER → 2025-08-15 10:49 | Outpatient (REF) | payer MEDICARE, SELFPAY ==
[2025-08-15 12:27] LABS: HDL Cholesterol 55 mg/dl; LDL Cholesterol, Calculated 58 mg/dl; Very Low Density Lipoprotein 14 mg/dl (0-30)
== END ==
LOC: REG 10:49
PROVIDERS: ATTENDING PHYSICIAN Internal Medicine Cardiovascular Disease; FAMILY PHYSICIAN Family Medicine
DX: E78.5 Hyperlipidemia, unspecified (principal)
CPT/HCPCS: 36415; 80061